=== PATIENT | male | born 1980 | race Caucasian/White ===

== ENCOUNTER 2020-08-27 10:22 | Emergency (ER) | payer MEDICARE, OTHER ==
[2020-08-27 11:35] LABS: HEMOGLOBIN 14.5 gm/dl (14.0-17.5); RED BLOOD COUNT 4.56 M/UL (4.20-5.50); WHITE BLOOD COUNT 9.3 K/UL (4.5-11.0)
[2020-08-27] MEDS ORDERED: HYDROCODON-ACE1 EAC4 PO (13:13)
[2020-08-27] MEDS ORDERED: CYCLOBENZAPRINE10 MG PO (13:13)
== END 2020-08-27 14:10 | disposition home or self-care (01) ==
LOC: ER1 10:22
PROVIDERS: Emergency Medicine
DX: M50.30 Other cervical disc degeneration, unspecified cervical region (principal); M54.41 Lumbago with sciatica, right side; I12.9 Hypertensive chronic kidney disease with stage 1 through stage 4 chronic kidney disease, or unspecified chronic kidney disease; N18.9 Chronic kidney disease, unspecified
CPT/HCPCS: 72125; 72128; 72131; 80053; 85025; 85652; 86140; 96374; 96375; 99284; J2270; J2405

== ENCOUNTER 2020-08-31 11:51 | Emergency (ER) | payer MEDICARE, OTHER ==
[~2020-08-31 11:51] MED LIST: CYCLOBENZAPRINE10 MG PO; HYDROCODON-ACE1 EAC4 PO
[2020-08-31 12:54] LABS: HEMOGLOBIN 13.4 gm/dl (14.0-17.5); RED BLOOD COUNT 4.19 M/UL (4.20-5.50); WHITE BLOOD COUNT 8.1 K/UL (4.5-11.0)
[2020-08-31 13:11] LABS: BUN/CREATININE RATIO 17 (0-10)
[2020-08-31] MEDS ORDERED: CYCLOBENZAPRINE10 MG PO (14:45)
== END 2020-08-31 14:55 | disposition home or self-care (01) ==
LOC: ER1 11:51
PROVIDERS: Family Medicine
DX: M54.5 Low back pain (principal); M54.2 Cervicalgia; G89.29 Other chronic pain; I10 Essential (primary) hypertension; F17.200 Nicotine dependence, unspecified, uncomplicated; Z79.899 Other long term (current) drug therapy
CPT/HCPCS: 80048; 85025; 86140; 99283

== ENCOUNTER 2021-04-03 16:00 | Emergency (ER) | payer MEDICARE, OTHER ==
[2021-04-03] MEDS ORDERED: MEDROL DOSEPAK 24 MG PO (18:52)
[2021-04-03] MEDS ORDERED: NORFLEX 100 MG100 MG PO (18:52)
== END 2021-04-03 19:02 | disposition home or self-care (01) ==
LOC: ER1 16:00
DX: M54.50 Low back pain, unspecified (principal); G89.29 Other chronic pain; F17.210 Nicotine dependence, cigarettes, uncomplicated; Z88.6 Allergy status to analgesic agent
CPT/HCPCS: 72100; 73502; 96372; 99283; J1100; J1885

== ENCOUNTER 2021-09-05 19:06 | Emergency (ER) | payer MEDICARE, OTHER ==
[~2021-09-05 19:06] MED LIST changes: +MEDROL DOSEPAK 24 MG PO; +NORFLEX 100 MG100 MG PO
[2021-09-06] MEDS ORDERED: HYDROCODON-ACE1 EAC4 PO (01:45)
[2021-09-06] MEDS ORDERED: LIDOCAINE PAIN1 EACH TP (01:45)
[2021-09-06] MEDS ORDERED: ROBAXIN 750 MG750 MG PO (01:45)
== END 2021-09-06 02:00 | disposition home or self-care (01) ==
LOC: ER1 19:06
DX: M51.36 Other intervertebral disc degeneration, lumbar region (principal); M54.12 Radiculopathy, cervical region; M54.16 Radiculopathy, lumbar region; M54.41 Lumbago with sciatica, right side
CPT/HCPCS: 72125; 72131; 96374; 96375; 96376; 99283; J1100; J2270